=== PATIENT | male | born 1935 | race Caucasian/White ===

== ENCOUNTER 2020-12-10 15:06 | Inpatient (IN) | payer OTHER, MEDICARE ==
[~2020-12-10] VITALS: Ht 182.9 cm; Wt 99.7 kg
[2020-12-10] MEDS ORDERED: ELIQUIS2.5 MG PO (16:03)
[2020-12-10] MEDS ORDERED: Coreg6.25 MG PO (16:03)
[2020-12-10] MEDS ORDERED: Prinivil10 MG PO (16:04)
[2020-12-10] MEDS ORDERED: HYDCHL12.5 PO (16:04)
[2020-12-10] MEDS ORDERED: ATOR40TA PO (16:05)
[2020-12-10] MEDS ORDERED: Folic Acid0.8 MG PO (16:05)
[2020-12-10] MEDS ORDERED: B-121000 MC3 PO (16:05)
[2020-12-10] MEDS ORDERED: COPAXONE40 MG/1 ML SQ (16:06)
[2020-12-10] MEDS ORDERED: CENTRUM SILVER1 EAC2 PO (16:06)
[2020-12-10] MEDS ORDERED: VITAMIN D325 MC3 PO (16:06)
[2020-12-10 17:26] LABS: BASOPHILS ABSOLUTE AUTO 0.05 K/mm3 (0.00-0.23); BASOPHILS PERCENT AUTO 1 % (0-2); EOSINOPHILS ABSOLUTE AUTO 0.19 K/mm3 (0.00-0.68); EOSINOPHILS PERCENT AUTO 4 % (0-6); Hematocrit 38.1 % (37.0-53.0); Hemoglobin 12.9 g/dL (13.5-17.5); IMMATURE GRAN ABSOLUTE AUTO 0.02 K/mm3 (0.00-0.10); IMMATURE GRAN PERCENT AUTO 0 % (0-1); LYMPHOCYTES ABSOLUTE AUTO 0.81 K/mm3 (0.84-5.20); LYMPHOCYTES PERCENT AUTO 16 % (21-46); MONOCYTES ABSOLUTE AUTO 0.33 K/mm3 (0.16-1.47); MONOCYTES PERCENT AUTO 7 % (4-13); Mean Corpuscular HGB 30.4 pg (26.0-34.0); Mean Corpuscular HGB Conc 33.9 g/dL (31.5-36.5); Mean Corpuscular Volume 90 fL (80-100); Mean Platelet Volume 9.8 fL (9.1-12.4); NEUTROPHILS ABSOLUTE AUTO 3.59 K/mm3 (1.96-9.15); NEUTROPHILS PERCENT AUTO 72 % (41-73); Platelet Count 164 K/mm3 (150-400); RDW Coefficient Variation 13.4 % (11.7-14.2); RDW Standard Deviation 43.7 fL (35.1-46.3); Red Blood Cell Count 4.25 M/mm3 (4.30-5.90); White Blood Cell Count 4.99 K/mm3 (4.00-11.30)
[2020-12-10 17:35] LABS: Bun/Creatinine Ratio 23.3 (12.0-20.0); Calcium, Blood 9.1 mg/dL (8.5-10.1); Creatinine, Blood 1.8 mg/dL (0.60-1.20); Potassium, Blood 4.3 mmol/L (3.5-5.5)
[2020-12-10 18:10] LABS: International Normalized Ratio 1.19; Prothrombin Time Results 12.4 Sec (9.7-11.5)
[2020-12-10 19:30] LABS: SARS-Cov-2 (COVID-19) PCR, MMC POSITIVE (NEGATIVE)
--- NOTE | 2020-12-10 20:50 | NUR ---
PT ARRIVED FROM ER @ THIS TIME.
[2020-12-11 04:18] LABS: BASOPHILS ABSOLUTE AUTO 0.07 K/mm3 (0.00-0.23); BASOPHILS PERCENT AUTO 1 % (0-2); EOSINOPHILS ABSOLUTE AUTO 0.24 K/mm3 (0.00-0.68); EOSINOPHILS PERCENT AUTO 2 % (0-6); Hematocrit 39.9 % (37.0-53.0); Hemoglobin 13.5 g/dL (13.5-17.5); IMMATURE GRAN ABSOLUTE AUTO 0.04 K/mm3 (0.00-0.10); IMMATURE GRAN PERCENT AUTO 0 % (0-1); LYMPHOCYTES ABSOLUTE AUTO 0.99 K/mm3 (0.84-5.20); LYMPHOCYTES PERCENT AUTO 8 % (21-46); MONOCYTES ABSOLUTE AUTO 0.78 K/mm3 (0.16-1.47); MONOCYTES PERCENT AUTO 6 % (4-13); Mean Corpuscular HGB 30.3 pg (26.0-34.0); Mean Corpuscular HGB Conc 33.8 g/dL (31.5-36.5); Mean Corpuscular Volume 90 fL (80-100); Mean Platelet Volume 9.5 fL (9.1-12.4); NEUTROPHILS ABSOLUTE AUTO 10.61 K/mm3 (1.96-9.15); NEUTROPHILS PERCENT AUTO 83 % (41-73); Platelet Count 171 K/mm3 (150-400); RDW Coefficient Variation 13.4 % (11.7-14.2); RDW Standard Deviation 44.2 fL (35.1-46.3); Red Blood Cell Count 4.46 M/mm3 (4.30-5.90); White Blood Cell Count 12.73 K/mm3 (4.00-11.30)
[2020-12-11 04:46] LABS: Albumin, Blood 3.6 g/dL (3.4-5.0); Bilirubin, Total 0.9 mg/dL (0.1-1.0); Bun/Creatinine Ratio 25.5 (12.0-20.0); Calcium, Blood 9.3 mg/dL (8.5-10.1); Creatinine, Blood 1.57 mg/dL (0.60-1.20); Globulin, Blood 3.5 g/dL (2.2-4.0); Potassium, Blood 4.1 mmol/L (3.5-5.5); Total Protein, Blood 7.1 g/dL (6.4-8.2)
--- NOTE | 2020-12-11 05:47 | NUR ---
SHIFT SUMMARY PT A&O X4 & IN PLEASENT MOOD T/O SHIFT. PT RESTING IN BED T/O SHIFT. CALL LIGHT W/IN REACH AND ABLE TO UTILIZE APPROPRIATELY. MEDICATED PAIN PER EMAR AND REPOSITIONING. PPP, BUT WEAK BILATERALLY IN LOWER EXTREMITIES. PT STATES WILL BE IN TODAY FROM [facility]. VOIDING WELL. NPO SINCE 0000.
--- NOTE | 2020-12-11 08:49 | NUR ---
A+O, says hip hurts but expected r/fx, waiting for surgery
--- NOTE | 2020-12-11 13:48 | NUR ---
IN TO VISIT PRE SURGERY ASKED PT BE PREPARED FOR SURGERY, GOT BLOOD CONSENT AND AN EKG SO PT WOULD BE READY FOR PROCEDURE, WILL CONTINUE TO MONITOR AND TREAT APPROPRIATE
--- NOTE | 2020-12-11 14:38 | NUR ---
History, Chart, Medications and Allergies reviewed before start of procedure.Pre-Op teaching done. Pt verbalizes understanding.
--- NOTE | 2020-12-11 19:14 | NUR ---
a+o, call light in reach, talking to on phone, vss, rm air, saline locked, vs not sent to computer due to hw issues, denies pain at site but hip still sore and not moving
--- NOTE | 2020-12-12 06:11 | NUR ---
SHIFT SUMMARY POD1 R HIP FIXATION, A/O X4, VSS, TOLERATING PO, ANXIOUS TO DC BEFORE MONDAY DUE TO MS MEDICATION SCHEDULE, EDUCATED ON POST OP RECOVERY EXPECTATIONS FOR DC, EAGER TO WORK WITH PT/OT LATER TODAY. DENIES PAIN T/O SHIFT. NO ACUTE EVENTS THIS SHIFT, CALL LIGHT IN REACH, WILL CTM AND REPORT TO DAY RN.
[2020-12-12 09:37] LABS: Hematocrit 42.5 % (37.0-53.0); Hemoglobin 14.1 g/dL (13.5-17.5); Mean Corpuscular HGB 29.7 pg (26.0-34.0); Mean Corpuscular HGB Conc 33.2 g/dL (31.5-36.5); Mean Corpuscular Volume 90 fL (80-100); Mean Platelet Volume 9.8 fL (9.1-12.4); Platelet Count 159 K/mm3 (150-400); RDW Coefficient Variation 13.7 % (11.7-14.2); Red Blood Cell Count 4.75 M/mm3 (4.30-5.90); White Blood Cell Count 16.11 K/mm3 (4.00-11.30)
[2020-12-12 09:54] LABS: Albumin, Blood 3.5 g/dL (3.4-5.0); Anion Gap 8 mmol/L (6-16); Blood Urea Nitrogen 46 mg/dL (8-24); Bun/Creatinine Ratio 26.9 (12.0-20.0); CO2, Blood 24 mmol/L (21-32); Calcium, Blood 9.6 mg/dL (8.5-10.1); Chloride, Blood 103 mmol/L (98-108); Creatinine, Blood 1.71 mg/dL (0.60-1.20); Glomerular Filtration Rate 38 (60-); Glucose, Blood 139 mg/dL (70-99); Phosphorus, Blood 3.4 mg/dL (2.5-4.9); Potassium, Blood 4.4 mmol/L (3.5-5.5); Sodium, Blood 135 mmol/L (136-145)
--- NOTE | 2020-12-12 15:47 | NUR ---
PT WANTING TO GO TO "[facility]" PHYSICAL THERAPY IN [place], [place] AT DISCHARGE. [phone]. PT REPORTS THAT IT IS ONLY 5 BLOCKS FROM HIS HOME.
--- NOTE | 2020-12-12 16:58 | NUR ---
SHIFT SUMMARY PT WAS AWAKE EARLY THIS AM. A&O, PLEASANT AND CO-OP. DENIED PAIN AT REST. DID AGREE TO PAIN MEDICATION WHEN TRYING TO WORK WITH P/T. NO FURTHER C/O. PT ABLE TO GET UP TO CHAIR AT BS AND LATER TO [facility]. PT IS ANXIOUS TO BE D/C'D TOMORROW. REQUESTED TO GO TO "[facility]" PHYSICAL THERAPY IN [place], WHICH HE REPORTED WAS ONLY [address] HICKEY IN TO SEE PT THIS AM, AND LATER DR ALY. PT WORRIED ABOUT RESTARTING HIS ELIQUIS, SINCE EARLY THIS AM. DR ALY REPORTED PT CAN RESTART TOMORROW. PT IN DROPLET ISO; COVID +. PT REPORTS MINIMAL TO NO SYMPTOMS. RESTING QUIETLY WATCHING TV IN CHAIR, WITH LE'S ELEVATED. CALL LT IN REACH.
[2020-12-12 18:28] LABS: Source, Urine Clean Catch
[2020-12-12 18:43] LABS: Appearance, Urine Hazy (Clear); Bilirubin, Urine Neg (Neg); Blood, Urine 3+ (Neg); Color, Urine Yellow (P-Yellow); Glucose Qualitative, Urine Neg (Neg); Ketones, Urine Neg (Neg); Leukocyte Esterase, Urine Neg (Neg); Nitrite, Urine Neg (Neg); Protein, Urine 3+ (Neg); Specific Gravity, Urine 1.015 (1.003-1.022); Urobilinogen, Urine NORM (Normal)
[2020-12-12 19:12] LABS: Bacteria Few /hpf; Granular Casts 0-2 /lpf (0); Hyaline Casts 0-2 /lpf (0-2); Squamous Epithelial Cells Rare /hpf (Few); White Blood Cells, Urine 0-2 /hpf (0-5)
[2020-12-13 04:10] LABS: Hematocrit 38.1 % (37.0-53.0); Mean Corpuscular HGB 30.2 pg (26.0-34.0); Mean Corpuscular HGB Conc 34.1 g/dL (31.5-36.5); Mean Corpuscular Volume 89 fL (80-100); Mean Platelet Volume 9.5 fL (9.1-12.4); Platelet Count 159 K/mm3 (150-400); RDW Coefficient Variation 13.8 % (11.7-14.2); RDW Standard Deviation 44.2 fL (35.1-46.3); White Blood Cell Count 15.37 K/mm3 (4.00-11.30)
[2020-12-13 04:39] LABS: Albumin, Blood 2.9 g/dL (3.4-5.0); Anion Gap 6 mmol/L (6-16); Blood Urea Nitrogen 55 mg/dL (8-24); Bun/Creatinine Ratio 29.9 (12.0-20.0); CO2, Blood 27 mmol/L (21-32); Calcium, Blood 9.1 mg/dL (8.5-10.1); Chloride, Blood 101 mmol/L (98-108); Creatinine, Blood 1.84 mg/dL (0.60-1.20); Glomerular Filtration Rate 35 (60-); Glucose, Blood 111 mg/dL (70-99); Phosphorus, Blood 3.4 mg/dL (2.5-4.9); Potassium, Blood 4.4 mmol/L (3.5-5.5); Sodium, Blood 134 mmol/L (136-145)
--- NOTE | 2020-12-13 07:33 | NUR ---
SHIFT SUMMARY POD2 R HIP FIXATION, A/O X4, VSS, TOLERATING PO, ABLE TO AMBULATE c FWW/GB AND MIN/MOD ASSISTANCE, WAS UP TO CHAIR FIRST FEW HOURS OF THE SHIFT, DENIES PAIN OTHER THAN WHEN WORKING c PHYSICAL THERAPY PER DAY RN REPORT. NO ACUTE EVENTS THIS SHIFT. CALL LIGHT IN REACH, REPORT GIVEN TO DAY RN.
--- NOTE | 2020-12-13 17:46 | NUR ---
SUMMARY: PT IS POD 2 R HIP FIXATION. PT IS A/O, VSS, [facility] [place]. SURGICAL SITE WNL. PT ABLE TO WORK WITH THERAPY, NEEDED 1 ASSIST WITH GAIT AND FWW. SNF RECOMMENDED. PT HAS DENIED PAIN TODAY. NO SX OF COVID. WILL CTM AND REPORT TO RENEE AREVALO.
--- NOTE | 2020-12-13 22:57 | NUR ---
MEDICATIONS PT REPORTS GETTING AVODART DAILY AT BEDTIME 40 MG, THIS MEDICATION IS AVAILABLE IN 0.5MG TABLETS. PT REPORTS HE HAS BEEN GETTING IT WHILE HERE BUT THERE IS NO RECORD OF AN ORDER FOR IT. WILL DISCUSS WITH DAY RN TO GET CONFIRMATION OF HIS HOME DOSE. WILL CTM PATIENT CONDITION.
--- NOTE | 2020-12-14 06:21 | NUR ---
SHIFT SUMMARY POD3 R HIP FIXATION, A/O X4 THOUGH APPEARS TO GET SOME THINGS A LITTLE MIXED UP. AMBULATES c 1 PERSON ASSIST USING FWW/GB BUT ONLY SHORT DISTANCES SO FAR, DENIES PAIN, TOLERATING PO. C/O NOT GETTING HOME DOSE OF AVODART, DISCUSSED HIS REPORTED DOSE AND THE NORMAL RECOMMENDED DOSES WITH HIM AND WITH THE HIGH VARIANCE THAT IT SHOULD BE VERIFIED PRIOR TO GETTING IT ORDERED. NO OTHER EVENTS THIS SHIFT. CALL LIGHT IN REACH, WILL CTM AND REPORT TO DAY RN.
[2020-12-14] MEDS ORDERED: TRAM50 PO (13:03)
[2020-12-14] MEDS ORDERED: MIRALAX17 GM PO (13:03)
[2020-12-14] MEDS ORDERED: ACET325 PO (13:03)
--- NOTE | 2020-12-14 15:40 | NUR ---
DISCHARGE SUMMARY POD2 R HIP FIXATION, DRESSING C/D/I. VITAL SIGNS STABLE. PT VOIDING AND PASSING STOOL. PRESCRIPTIONS SENT WITH PT. IV TAKEN OUT, WNL. VERBAL AND WRITTEN DISCHARGE INSTRUCTIONS GIVEN TO PT, PT VERBALIZED UNDERSTANDING. PT WHEELED OUT TO VEHICLE BY HOSPITAL STAFF. BELONGINGS TAKEN WITH PT.
== END 2020-12-14 14:48 | disposition home health service (06) | DRG 480 ==
LOC: ER 15:06 → SURS 19:06
PROVIDERS: Internal Medicine; Orthopaedic Surgery; Student in an Organized Health Care Education/Training Program; ADMIT Internal Medicine
PROC: 0QH634Z Insertion of Internal Fixation Device into Right Upper Femur, Percutaneous Approach (ICD-10-PCS; principal; 2020-12-11 14:00)
DX: S72.001A Fracture of unspecified part of neck of right femur, initial encounter for closed fracture (principal); U07.1 COVID-19; E87.1 Hypo-osmolality and hyponatremia; I48.20 Chronic atrial fibrillation, unspecified; G35 Multiple sclerosis; E78.5 Hyperlipidemia, unspecified; I12.9 Hypertensive chronic kidney disease with stage 1 through stage 4 chronic kidney disease, or unspecified chronic kidney disease; N18.30 Chronic kidney disease, stage 3 unspecified; W10.9XXA Fall (on) (from) unspecified stairs and steps, initial encounter; Y92.89 Other specified places as the place of occurrence of the external cause; Z79.899 Other long term (current) drug therapy; Z79.01 Long term (current) use of anticoagulants; Z87.891 Personal history of nicotine dependence
CPT/HCPCS: 36415; 72170; 73552; 73560-RT; 80048; 80053; 80069; 81001; 85025; 85027; 85610; 85730; 86850; 86900; 86901; 93005; 93010; 96374; 96375; 97110; 97116; 97162; 97166; 97530; 97535; 99284-25; A9270; C1713; C1769; J0171; J0690; J1100; J1170; J2370; J2405; J2704; J2765; J3010; J7120; U0004